=== PATIENT | male | born 1965 | race Caucasian/White ===

== ENCOUNTER 2020-03-03 13:47 | Emergency (ER) | payer SELFPAY ==
[2020-03-03 13:57] VITALS: BP 180/103
--- NOTE | 2020-03-03 13:59 | ER Document Report ---
ED Extremity Problem, Upper - General Chief Complaint: Arm Injury Stated Complaint: FALL/RIGHT ARM Time Seen by Provider: 03/03/20 13:53 Primary Care Provider: HELEN SRINIVASAN JR, DO [ACTIVE PROVISIONAL STAFF] - Follow up as needed Mode of Arrival: Ambulatory Information source: Patient Notes: 54-year-old male presented to ED for complaint of pain to the right shoulder he states he fell onto his right shoulder last Sunday which would be about 10 days ago. He states he was in the driveway getting ready to go to work when he fell. He states he thought it would get better so he did not go to the doctor but it has not gotten better so is now at the emergency room. He states he has been taking Tylenol Motrin and aspirin and getting no relief. States he does have high blood pressure is on lisinopril hydrochlorothiazide 12.525 and he did take that just before coming to the emergency room. His blood pressure is elevated at this time at 180/103. He is not having any symptoms from the blood pressure. Is in a lot of pain. We will get x-rays see what we see on the x-ray and and discuss treatment. He states he took 2 aspirin this morning about 8 9:00 this morning. Constitutional: Negative for fever. HENT: Negative for sore throat. Eyes: Negative for visual changes. Cardiovascular: Negative for chest pain. Respiratory: Negative for shortness of breath. Gastrointestinal: Negative for abdominal pain, vomiting or diarrhea. Genitourinary: Negative for dysuria. Musculoskeletal: Pain and decreased range of motion to the right shoulder for the last 10 days after he fell. Skin: Negative for rash. Neurological: Negative for headaches, weakness or numbness. 10 point ROS negative except as marked above and in HPI. PHYSICAL EXAMINATION: GENERAL: Well-appearing, well-nourished and in no acute distress. HEAD: Atraumatic, normocephalic. EYES: Pupils equal round extraocular movements intact, conjunctiva are normal. ENT: Nares patent NECK: Normal range of motion LUNGS: No respiratory distress Musculoskeletal: Decreased range of motion to the right shoulder due to pain after fall a week ago Sunday. He does have tenderness to palpation. We will get x-rays NEUROLOGICAL: Normal speech, normal gait. PSYCH: Normal mood, normal affect. SKIN: Warm, Dry, normal turgor, no rashes or lesions noted. - HPI Patient complains to provider of: Right, Shoulder Onset: Last week Recent injury: Yes - Sunday week ago Where: Home, Outdoors Quality of pain: Achy, Sharp Severity of pain: Moderate Pain Level: 3 Context: Fall Exacerbated by: Movement, Exertion Relieved by: Rest, Positioning Similar symptoms previously: No Recently seen / treated by doctor: No - Related Data Allergies/Adverse Reactions: No Known Allergies Allergy (Verified 03/03/20 14:56) Past Medical History - General Information source: Patient - Social History Smoking Status: Current Every Day Smoker Cigarette use (# per day): Yes - Pack a day Smoking Education Provided: Yes - 3 min Frequency of alcohol use: Occasional Drug Abuse: None Occupation: Commercial Administrator Lives with: Alone Family History: Reviewed & Not Pertinent Patient has suicidal ideation: No Patient has homicidal ideation: No - Past Medical History Cardiac Medical History: Reports: Hx Hypertension Pulmonary Medical History: Reports: None EENT Medical History: Reports: None Neurological Medical History: Reports: None Endocrine Medical History: Reports: None Renal/ Medical History: Reports: None Malignancy Medical History: Reports None GI Medical History: Reports: None Musculoskeletal Medical History: Reports Hx Arthritis, Reports Hx Musculoskeletal Deformity, Reports Hx Musculoskeletal Trauma Skin Medical History: Reports None Psychiatric Medical History: Reports: None Traumatic Medical History: Reports: None Infectious Medical History: Reports: None Past Surgical History: Reports: Hx Orthopedic Surgery - Bilateral shoulder surgery - Immunizations Immunizations up to date: Yes Hx Diphtheria, Pertussis, Tetanus Vaccination: Yes - 2014 History of Pneumococcal Vaccine: No History of Influenza Vaccine for 12/2018 - 05/2019 Season: No Physical Exam - Vital signs Vitals: Temp Pulse Resp BP Pulse Ox 97.9 F 93 20 180/103 H 98 03/03/20 13:51 03/03/20 13:51 03/03/20 13:51 03/03/20 13:51 03/03/20 13:51 Course - Re-evaluation Re-evalutation: 03/04/20 01:12 Discussed x-ray with patient. Patient was treated with sling for his fractured humerus. Dr. Srinivasan stated that if I treated him with sling he should be okay until Sunday when he can call the office to be seen. - Vital Signs Vital signs: Temp Pulse Resp BP Pulse Ox 97.9 F 93 20 180/103 H 98 03/03/20 13:51 03/03/20 13:51 03/03/20 13:51 03/03/20 13:51 03/03/20 13:51 - Laboratory Results Critical Laboratory Results Reviewed: No Critical Results - Radiology Results Critical Radiology Results Reviewed: No Critical Results Procedures - Immobilization Right Shoulder Time completed: 14:35 Pre-Proc Neuro Vasc Exam: Normal Immobilizer type: Sling Performed by: PCT Post-Proc Neuro Vasc Exam: Normal, Unchanged from pre-exam Alignment checked and good: Yes Discharge - Discharge Clinical Impression: Closed fracture of right proximal humerus Qualifiers: Encounter type: initial encounter Fracture morphology: unspecified fracture morphology Qualified Code(s): S42.201A - Unspecified fracture of upper end of right humerus, initial encounter for closed fracture Condition: Stable Disposition: HOME, SELF-CARE Additional Instructions: Fracture Proximal Humerus There is a fracture at the upper end of the humerus, near the shoulder joint. Your physician has assessed the fracture's severity and has determined that it will heal well without surgery or "setting." The typical shoulder fracture doesn't need a cast. It's best treated by binding the arm down with a special sling. Ice packs are used to reduce pain and swelling. After early healing has occurred, [id number] exercises are prescribed for the shoulder. Complete healing may take three to six weeks, depending on the age of the patient and the severity of the fracture. Call the doctor or return at once if the arm becomes numb, or if pain or swelling become severe. Sling to be Used You are to use a sling. This is to rest the area, and to prevent it from hanging downward. Use this sling for at least 48 hours (or longer if so instructed by the doctor). Some types of splints will break if not supported by the sling, so the sling must be used as long as the splint. Ice can be placed inside the sling over the injured area. Once you remove the sling, you should not encounter pain when you use the arm and hand. If you do feel pain beneath the cast or splint, you must continue use of the sling. Oral Narcotic Medication You have been given a prescription for pain control. This medication is a narcotic. It's best taken with food, as nausea can result if taken on an empty stomach. Don't operate machinery or drive within six hours of taking this medication. Do not combine this medicine with alcohol, or with any medication which can cause sedation (such as cold tablets or sleeping pills) unless you get permission from the physician. Narcotics tend to cause constipation. If possible, drink plenty of fluids and eat a diet high in fiber and fruits. FOLLOW-UP CARE: If you have been referred to a physician for follow-up care, call the physicians office for an appointment as you were instructed or within the next two days. If you experience worsening or a significant change in your symptoms, notify the physician immediately or return to the Emergency Department at any time for re-evaluation. Prescriptions: Hydrocodone/Acetaminophen [Elsie 5-325 mg Tablet] 1 tab PO Q8HP PRN #21 tablet PRN Reason: For Pain Scale 3-5 Forms: Elevated Blood Pressure, Special Work Note, Smoking Cessation Education Referrals: HELEN SRINIVASAN JR, DO [ACTIVE PROVISIONAL STAFF] - Follow up as needed
--- NOTE | 2020-03-03 14:27 | RADIOLOGY REPORT (SQ) ---
EXAM DESCRIPTION: SHOULDER RIGHT 2 OR MORE VIEWS IMAGES COMPLETED DATE/TIME: 03/03/2020 2:15 pm REASON FOR STUDY: fall on right shoulder last sunday COMPARISON: None. NUMBER OF VIEWS: Three views. TECHNIQUE: Internal rotation, external rotation, and Y view images acquired of the right shoulder. LIMITATIONS: None. FINDINGS: MINERALIZATION: Normal. BONES: Mildly comminuted displaced proximal humeral neck and head fracture. JOINTS: No dislocation. VISUALIZED LUNGS AND RIBS: No pneumothorax. No rib fracture. SOFT TISSUES: No radiopaque foreign body. OTHER: No other significant finding. IMPRESSION: Mildly displaced humeral head and proximal neck fracture. No dislocation. TECHNICAL DOCUMENTATION: JOB ID: [id number] 2010 [employer]- All Rights Reserved Reading location - IP/workstation name: [email or web address]
== END 2020-03-03 14:30 | disposition home or self-care (01) ==
LOC: ER 13:47
DX: S42.201A Unspecified fracture of upper end of right humerus, initial encounter for closed fracture (principal); M25.511 Pain in right shoulder; W19.XXXA Unspecified fall, initial encounter; Y92.008 Other place in unspecified non-institutional (private) residence as the place of occurrence of the external cause; Z79.899 Other long term (current) drug therapy; F17.210 Nicotine dependence, cigarettes, uncomplicated; I10 Essential (primary) hypertension
CPT/HCPCS: 99283; 99406